=== PATIENT | male | born 2005 | race Two or more races ===

== ENCOUNTER 2023-11-29 16:30 | Emergency (ER) | payer MEDICAID ==
[~2023-11-29] VITALS: Ht 160 cm; Wt 82.1 kg
[2023-11-29] MEDS ORDERED: ACETAMINOPHEN 325 MG TABLET ONE (18:30)
[2023-11-29] MEDS: ACETAMINOPHEN 325 MG TABLET PO ONE (18:35)
[2023-11-29 20:46] VITALS: BP 128/66; TEMP 98.1; O2SAT 100
== END 2023-11-29 20:47 | disposition home or self-care (01) ==
LOC: ER 16:37
DX: M25.512 Pain in left shoulder (principal); R51.9 Headache, unspecified; M54.2 Cervicalgia; V89.2XXA Person injured in unspecified motor-vehicle accident, traffic, initial encounter; Y93.89 Activity, other specified; Y92.89 Other specified places as the place of occurrence of the external cause; Y99.8 Other external cause status
CPT/HCPCS: 70450-TC; 72125-TC; 72128-TC; 72131-TC; 73030-TC